=== PATIENT | female | born 1960 | race Caucasian/White ===

== ENCOUNTER 2017-04-26 15:30 | Outpatient (RCR) | payer OTHER, SELFPAY ==
--- NOTE | 2017-04-24 16:04 | HP.PTEVAL_ITS ---
Patient's Visit Information ЕЛЕНА YUAN is a 56 year old F referred to Physical Therapy by Brayan ALMEIDA with a diagnosis of vertigo.. Date of Evaluation: 04/24/17 Physical Therapist: Mina Sanders DPT, OC - Visit Plan Frequency: 1x/Week Duration: 4 Weeks Plan: weekly as needed. 2-4 weeks - Subjective Subjective: Started spinning upon arising this mornign rolling on L side lasting seconds. Went away but things were not right in the shower. This is just nancy last time she had BPPV. She tried the exercises described as BD ex but spinning was terrible. Has felt off all day today. Wroks at home but needed to stop. Spun getting out of the truck on the way here. Putting on shoes was problematic. Yesterday was a normal day. Not sure why it started. No other unusual symptoms present, arms feel good. Feels unsettled. - Objective Walks I, transfers I, has frowny face and does nto look happy today. - R hallpike. + L hallpike with up torsional nystagmus for 40 seconds. Treated with L Christie. - Goals Goal 1:: abolish dizzyness. Goal Time Frame: 2-4 Weeks - Rehabilitation Potential Physical Therapy Diagnosis: BPPV L Rehabilitation Potential: Good - Anticipated Interventions Patient/Client Instruction: Educate patient on: Condition For the Purpose of:: To decrease pain Comment: positional treatments as needed. Other: dizzyness. abolished. Thank you for the opportunity to evaluate your patient. For Medicare and Medicare HMO plans, please review the plan of care and approve it. It will need to be FAXED BACK to us at [phone] for Medicare purposes. Please let me know if there are questions or concerns regarding this plan of care. Physician Signature: Date:
--- NOTE | 2017-05-06 13:02 | HP.PTDCSUM ---
HP - PT D/C Summary It has been my pleasure to treat ЕЛЕНА YUAN under orders from DR.RMASON Eddie for the diagnosis of vertigo. for a total of 2 visit(s). Discharge Date: 05/06/17 Please see the following information for a summary of their discharge status. - Subjective Subjective: No problems with dizzyness anymore as related on phone. - Objective Objective/Function: - R HD. + L HD for slight increased funny feeling but no nystagmus. - Goals Goal 1:: abolish dizzyness. Goal Progress: Progressing - Plan Plan: D/C per patient request. - D/C Information Discharge Comments: Pt cancelled last visit stating she was doing well. If there are questions or concerns regarding this patient's physical therapy, please feel free to call me at [phone]. Thank you for the referral of this patient. Sincerely, Mina Sanders, DPT, OC
== END 2017-04-26 19:00 | disposition home or self-care (01) ==
LOC: PT 15:30
PROVIDERS: Visit Provider Family Medicine
DX: R42 Dizziness and giddiness (principal)
CPT/HCPCS: 97162; 97530

== ENCOUNTER → 2017-08-01 08:34 | Outpatient (CLI) | payer OTHER, SELFPAY ==
--- NOTE | 2017-08-01 08:35 | BI_ITS ---
MAMMOGRAPHY - BILATERAL SCREENING REASON FOR EXAM: Female, 57 years old. Routine annual screening examination. PERTINENT HISTORY: Non-contributory. TECHNIQUE: Digital bilateral breast elena (3D mammographic acquisition) in the CC and MLO projections. 2-D mediolateral oblique (MLO) and craniocaudad (CC) views of both breasts were obtained. CAD: Full Field Digital Mammography with Computer Added Detection was performed. COMPARISON: Comparison is made with prior study dated July 28, 2015 and July 26, 2014. FINDINGS: Breast Composition: The breasts are heterogeneously dense, which may obscure small masses. There are no dominant masses or suspicious calcifications. No other significant abnormalities are identified. There has been no significant change since the prior study. BI/SCREENING MAMM (CAD), BILAT IMPRESSION: Stable bilateral screening mammogram. Yearly follow-up mammogram recommended. (A) ASSESSMENT CATEGORY: BIRADS Category 1: Negative. A letter regarding these results will be sent to the patient by the facility within 30 days. Approximately 10% of breast cancers are not detected by mammography. A normal mammogram should not delay biopsy of a clinically suspicious abnormality. [id number] Electronically Signed: Carmine Puente MD at 9:49 EDT Tel [phone], Service support ,
== END ==
PROVIDERS: Visit Provider Obstetrics & Gynecology
DX: Z12.31 Encounter for screening mammogram for malignant neoplasm of breast (principal)
CPT/HCPCS: 77063; 77067

== ENCOUNTER → 2017-08-08 07:08 | Outpatient (CLI) | payer OTHER, SELFPAY ==
[2017-08-08 10:46] LABS: AST(SGOT) 18 U/L (15-37); Alanine Aminotransfer ALT/SGPT 25 U/L (13-56); Albumin, Serum 4.2 g/dL (3.2-5.0); Alkaline Phosphatase 40 U/L (45-117); Bilirubin, Direct 0.14 mg/dL (0.00-0.30); Cholesterol 144 mg/dL (200); Globulin 3.9 g/dL (2.2-4.2); High Density Lipoprotein 62 mg/dL; Protein, Total 8.1 g/dL (6.4-8.2); Thyroid Stim Hormone (TSH) 2.99 uIU/mL (0.358-3.74); Triglycerides 78 mg/dL; Very Low Density Lipoprotein 16 mg/dL (5-40)
== END ==
PROVIDERS: Visit Provider Family Medicine
DX: E78.5 Hyperlipidemia, unspecified (principal); E03.9 Hypothyroidism, unspecified
CPT/HCPCS: 36415; 80061; 80076; 84443

== ENCOUNTER → 2018-03-10 07:01 | Outpatient (CLI) | payer OTHER, SELFPAY ==
[2018-03-10 10:38] LABS: Color, Urine Yellow (Yellow); Glucose, Dipstick Normal (Normal); Ketone-Dipstick Negative (Negative); Leukocyte Esterase-Dipstick 100 /ul (Negative); Nitrite-Dipstick Negative (Negative); Occult Blood-Urine Negative /ul (Negative); Protein-Dipstick Negative (Negative); Urine Bilirubin Dipstick Negative (Negative); Urine Clarity Clear (Clear); Urine Urobilinogen Normal (Normal)
[2018-03-10 10:44] LABS: Absolute Neutrophil Count 2.3 X10^3/uL (2.0-7.7); Basophil# 0.05 X10^3/uL; Basophil% 0.9 % (0-1); Eosinophil# 0.17 X10^3/uL; Hematocrit 37.9 % (37-47); Hemoglobin 12.2 g/dl (12.0-15.0); Lymphocyte % 42.6 % (19-41); Mean Corp Hgb Conc 32.2 g/gl (32-36); Mean Corpuscular Volume 96.2 fL (81-99); Mean Platelet Vol. 10.4 fl (6.2-12.0); Monocyte# 0.74 X10^3/uL; Monocyte% 13.1 % (0-10); Neutrophil # 2.26 X10^3/uL (2.7-7.7); Neutrophil % 40.2 % (47-70); Platelet Count 240 K/mm3 (150-450); RBC Distribution Width CV 12.6 % (11.6-14.6); RBC Distribution Width SD 44.4 fl (35.1-43.9); Red Blood Count 3.94 M/mm3 (4.2-5.4); White Blood Count 5.6 K/mm3 (4.4-11.0)
[2018-03-10 10:45] LABS: POSITIVE COUNT NO; POSITIVE DIFFERENTIAL NO; POSITIVE MORPHOLOGY NO
[2018-03-10 10:49] LABS: ALB/GLOB Ratio 1.2 RATIO (0.9-2.4); AST(SGOT) 18 U/L (15-37); Alanine Aminotransfer ALT/SGPT 24 U/L (13-56); Albumin, Serum 3.7 g/dL (3.2-5.0); Alkaline Phosphatase 41 U/L (45-117); Anion Gap 9 (5-15); BUN 16 mg/dL (7-18); BUN/Creat Ratio 17.3 RATIO (10-20); Calcium,Total 8.7 mg/dL (8.5-10.1); Chloride 106 mmol/L (98-107); Cholesterol 148 mg/dL (200); Creatinine, Serum 0.92 mg/dL (0.55-1.02); EST Glomerular Filtration Rate 67 mL/min (>60); Est Glom Filt Rate - Afr Amer 81 mL/min (>60); Globulin 3.2 g/dL (2.2-4.2); Glucose 85 mg/dL (74-106); High Density Lipoprotein 57 mg/dL; Potassium 4.1 mmol/L (3.5-5.1); Protein, Total 6.9 g/dL (6.4-8.2); Sodium Level 145 mmol/L (136-145); Triglycerides 68 mg/dL; Very Low Density Lipoprotein 14 mg/dL (5-40)
== END ==
PROVIDERS: Referring Provider Family Medicine; Visit Provider Family Medicine
DX: Z00.00 Encounter for general adult medical examination without abnormal findings (principal); E78.5 Hyperlipidemia, unspecified
CPT/HCPCS: 36415; 80053; 80061; 81002; 85025

== ENCOUNTER → 2018-09-15 | Outpatient (CLI) | payer OTHER, SELFPAY ==
[2018-09-15 10:29] LABS: AST(SGOT) 22 U/L (15-37); Alanine Aminotransfer ALT/SGPT 23 U/L (13-56); Albumin, Serum 3.6 g/dL (3.2-5.0); Alkaline Phosphatase 48 U/L (45-117); Bilirubin, Direct 0.11 mg/dL (0.00-0.30); Cholesterol 161 mg/dL (200); Globulin 3.4 g/dL (2.2-4.2); High Density Lipoprotein 52 mg/dL; Thyroid Stim Hormone (TSH) 0.31 uIU/mL (0.358-3.74); Triglycerides 189 mg/dL; Very Low Density Lipoprotein 38 mg/dL (5-40)
== END | disposition home or self-care (01) ==
PROVIDERS: Referring Provider Family Medicine; Visit Provider Family Medicine
DX: E03.9 Hypothyroidism, unspecified (principal); E78.5 Hyperlipidemia, unspecified
CPT/HCPCS: 36415; 80061; 80076; 84443

== ENCOUNTER → 2018-12-26 07:30 | Outpatient (CLI) | payer OTHER, SELFPAY ==
[2018-12-26 10:28] LABS: Thyroid Stim Hormone (TSH) 1.91 uIU/mL (0.358-3.74)
== END ==
PROVIDERS: Referring Provider Family Medicine; Visit Provider Family Medicine
DX: E03.9 Hypothyroidism, unspecified (principal)
CPT/HCPCS: 36415; 84443

== ENCOUNTER → 2019-03-09 07:58 | Outpatient (CLI) | payer OTHER, SELFPAY ==
[2019-03-09 10:10] LABS: Absolute Lymphocyte Count 1.93 X10^3/uL (0.83-4.51); Absolute Neutrophil Count 2.8 X10^3/uL (2.0-7.7); Basophil# 0.07 X10^3/uL; Basophil% 1.3 % (0-1); Eosinophil# 0.15 X10^3/uL; Eosinophils% 2.7 % (0-5); Hematocrit 39.8 % (37-47); Hemoglobin 12.9 g/dL (12.0-15.0); Lymphocyte # 1.93 X10^3/ul (4.0); Lymphocyte % 34.9 % (19-41); Mean Corp Hgb Conc 32.4 g/dL (32-36); Mean Corpuscular Hgb 31.2 pg (27.0-32.0); Mean Corpuscular Volume 96.4 fL (81-99); Mean Platelet Vol. 10.4 fl (6.2-12.0); Monocyte# 0.61 X10^3/uL; NRBC Flagged by Analyzer 0 % (0-5); Neutrophil # 2.75 X10^3/uL (2.7-7.7); Neutrophil % 49.7 % (47-70); Platelet Count 263 K/mm3 (150-450); RBC Distribution Width CV 12.4 % (11.6-14.6); RBC Distribution Width SD 43.7 fl (35.1-43.9); Red Blood Count 4.13 M/mm3 (4.2-5.4); White Blood Count 5.5 K/mm3 (4.4-11.0)
[2019-03-09 10:12] LABS: Color, Urine Yellow (Yellow); Glucose, Dipstick Normal (Normal); Ketone-Dipstick Negative (Negative); Leukocyte Esterase-Dipstick Negative /ul (Negative); Nitrite-Dipstick Negative (Negative); Occult Blood-Urine Negative /ul (Negative); Protein-Dipstick Negative (Negative); Urine Bilirubin Dipstick Negative (Negative); Urine Clarity Sl. Cloudy (Clear); Urine Urobilinogen Normal (Normal)
[2019-03-09 10:32] LABS: AST(SGOT) 23 U/L (15-37); Alanine Aminotransfer ALT/SGPT 27 U/L (13-56); Albumin, Serum 3.7 g/dL (3.2-5.0); Alkaline Phosphatase 44 U/L (45-117); Anion Gap 4 (5-15); BUN 13 mg/dL (7-18); BUN/Creat Ratio 13.1 RATIO (10-20); Calcium,Total 8.7 mg/dL (8.5-10.1); Chloride 106 mmol/L (98-107); Cholesterol 176 mg/dL (200); Creatinine, Serum 0.99 mg/dL (0.55-1.02); EST Glomerular Filtration Rate 62 mL/min (>60); Est Glom Filt Rate - Afr Amer 74 mL/min (>60); Globulin 3.6 g/dL (2.2-4.2); Glucose 88 mg/dL (74-106); High Density Lipoprotein 69 mg/dL; Protein, Total 7.3 g/dL (6.4-8.2); Sodium Level 142 mmol/L (136-145); Thyroid Stim Hormone (TSH) 1.53 uIU/mL (0.358-3.74); Triglycerides 66 mg/dL; Very Low Density Lipoprotein 13 mg/dL (5-40)
== END ==
PROVIDERS: PCP Family Medicine; Referring Provider Family Medicine; Visit Provider Family Medicine
DX: Z00.00 Encounter for general adult medical examination without abnormal findings (principal); E78.5 Hyperlipidemia, unspecified; E03.9 Hypothyroidism, unspecified
CPT/HCPCS: 36415; 80053; 80061; 81002; 84443; 85025

== ENCOUNTER → 2019-09-17 07:05 | Outpatient (CLI) | payer OTHER, SELFPAY ==
[2019-09-17 10:53] LABS: AST(SGOT) 25 U/L (15-37); Alanine Aminotransfer ALT/SGPT 27 U/L (13-56); Albumin, Serum 3.6 g/dL (3.2-5.0); Alkaline Phosphatase 48 U/L (45-117); Bilirubin, Direct 0.09 mg/dL (0.00-0.30); Cholesterol 193 mg/dL (200); Globulin 3.5 g/dL (2.2-4.2); High Density Lipoprotein 68 mg/dL; Protein, Total 7.1 g/dL (6.4-8.2); Triglycerides 123 mg/dL; Very Low Density Lipoprotein 25 mg/dL (5-40)
== END ==
PROVIDERS: PCP Family Medicine; Referring Provider Family Medicine; Visit Provider Family Medicine
DX: E78.5 Hyperlipidemia, unspecified (principal); E03.9 Hypothyroidism, unspecified
CPT/HCPCS: 36415; 80061; 80076; 84443

== ENCOUNTER → 2020-03-08 07:04 | Outpatient (CLI) | payer OTHER, SELFPAY ==
[2020-03-08 09:46] LABS: Absolute Lymphocyte Count 1.92 X10^3/uL (0.83-4.51); Absolute Neutrophil Count 2.8 X10^3/uL (2.0-7.7); Basophil# 0.07 X10^3/uL; Basophil% 1.3 % (0-1); Eosinophil# 0.12 X10^3/uL; Eosinophils% 2.2 % (0-5); Hematocrit 38.3 % (37-47); Hemoglobin 12.4 g/dL (12.0-15.0); Lymphocyte # 1.92 X10^3/ul (4.0); Lymphocyte % 34.7 % (19-41); Mean Corp Hgb Conc 32.4 g/dL (32-36); Mean Corpuscular Hgb 31.3 pg (27.0-32.0); Mean Corpuscular Volume 96.7 fL (81-99); Mean Platelet Vol. 10.1 fl (6.2-12.0); Monocyte# 0.66 X10^3/uL; Monocyte% 11.9 % (0-10); NRBC Flagged by Analyzer 0 % (0-5); Neutrophil # 2.75 X10^3/uL (2.7-7.7); Neutrophil % 49.7 % (47-70); Platelet Count 290 K/mm3 (150-450); RBC Distribution Width CV 12.1 % (11.6-14.6); RBC Distribution Width SD 43.5 fl (35.1-43.9); Red Blood Count 3.96 M/mm3 (4.2-5.4); White Blood Count 5.5 K/mm3 (4.4-11.0)
[2020-03-08 10:12] LABS: AST(SGOT) 23 U/L (15-37); Alanine Aminotransfer ALT/SGPT 30 U/L (13-56); Albumin, Serum 3.7 g/dL (3.2-5.0); Alkaline Phosphatase 51 U/L (45-117); Anion Gap 6 (5-15); BUN 10 mg/dL (7-18); BUN/Creat Ratio 10.8 RATIO (10-20); Calcium,Total 8.6 mg/dL (8.5-10.1); Chloride 103 mmol/L (98-107); Cholesterol 200 mg/dL (200); Creatinine, Serum 0.93 mg/dL (0.55-1.02); EST Glomerular Filtration Rate 66 mL/min (>60); Est Glom Filt Rate - Afr Amer 80 mL/min (>60); Globulin 3.7 g/dL (2.2-4.2); Glucose 94 mg/dL (74-106); High Density Lipoprotein 65 mg/dL; Potassium 3.8 mmol/L (3.5-5.1); Protein, Total 7.4 g/dL (6.4-8.2); Sodium Level 139 mmol/L (136-145); Thyroid Stim Hormone (TSH) 3.25 uIU/mL (0.358-3.74); Triglycerides 185 mg/dL; Very Low Density Lipoprotein 37 mg/dL (5-40)
== END ==
PROVIDERS: PCP Family Medicine; Referring Provider Family Medicine; Visit Provider Family Medicine
DX: Z00.00 Encounter for general adult medical examination without abnormal findings (principal); E78.5 Hyperlipidemia, unspecified; Z13.6 Encounter for screening for cardiovascular disorders; E03.9 Hypothyroidism, unspecified
CPT/HCPCS: 36415; 80053; 80061; 84443; 85025

== ENCOUNTER → 2020-09-08 07:01 | Outpatient (CLI) | payer OTHER, SELFPAY ==
[2020-09-08 10:38] LABS: AST(SGOT) 23 U/L (15-37); Alanine Aminotransfer ALT/SGPT 25 U/L (13-56); Albumin, Serum 3.8 g/dL (3.2-5.0); Alkaline Phosphatase 53 U/L (45-117); Bilirubin, Direct 0.12 mg/dL (0.00-0.30); Cholesterol 193 mg/dL (200); Globulin 3.3 g/dL (2.2-4.2); High Density Lipoprotein 62 mg/dL; Protein, Total 7.1 g/dL (6.4-8.2); Thyroid Stim Hormone (TSH) 0.89 uIU/mL (0.358-3.74); Triglycerides 151 mg/dL; Very Low Density Lipoprotein 30 mg/dL (5-40)
== END ==
PROVIDERS: PCP Family Medicine; Referring Provider Family Medicine; Visit Provider Family Medicine
DX: E03.9 Hypothyroidism, unspecified (principal); E78.5 Hyperlipidemia, unspecified
CPT/HCPCS: 36415; 80061; 80076; 84443

== ENCOUNTER 2021-03-27 07:04 | Outpatient (CLI) | payer OTHER, SELFPAY ==
[2021-03-27 10:00] LABS: Absolute Lymphocyte Count 2.11 X10^3/uL (0.83-4.51); Absolute Neutrophil Count 3.2 X10^3/uL (2.0-7.7); Basophil# 0.08 X10^3/uL; Basophil% 1.3 % (0-1); Eosinophil# 0.13 X10^3/uL; Eosinophils% 2.1 % (0-5); Hematocrit 37.6 % (37-47); Hemoglobin 12.3 g/dL (12.0-15.0); Lymphocyte # 2.11 X10^3/ul (0.83-4.51); Lymphocyte % 33.5 % (19-41); Mean Corp Hgb Conc 32.7 g/dL (32-36); Mean Corpuscular Hgb 31.5 pg (27.0-32.0); Mean Corpuscular Volume 96.2 fL (81-99); Mean Platelet Vol. 10.5 fl (6.2-12.0); Monocyte# 0.74 X10^3/uL; Monocyte% 11.8 % (0-10); NRBC Flagged by Analyzer 0 % (0-5); Neutrophil # 3.22 X10^3/uL (2.7-7.7); Neutrophil % 51.1 % (47-70); Platelet Count 297 K/mm3 (150-450); RBC Distribution Width CV 12.3 % (11.6-14.6); RBC Distribution Width SD 43.2 fl (35.1-43.9); Red Blood Count 3.91 M/mm3 (4.2-5.4); White Blood Count 6.3 K/mm3 (4.4-11.0)
[2021-03-27 10:36] LABS: ALB/GLOB Ratio 0.9 RATIO (0.9-2.4); AST(SGOT) 23 U/L (15-37); Alanine Aminotransfer ALT/SGPT 28 U/L (13-56); Albumin, Serum 3.7 g/dL (3.2-5.0); Alkaline Phosphatase 55 U/L (45-117); Anion Gap 7 (5-15); BUN 17 mg/dL (7-18); BUN/Creat Ratio 17.8 RATIO (10-20); Calcium,Total 9.1 mg/dL (8.5-10.1); Chloride 104 mmol/L (98-107); Cholesterol 183 mg/dL (200); Creatinine, Serum 0.95 mg/dL (0.55-1.02); EST Glomerular Filtration Rate 64 mL/min (>60); Est Glom Filt Rate - Afr Amer 77 mL/min (>60); Globulin 3.9 g/dL (2.2-4.2); Glucose 97 mg/dL (74-106); High Density Lipoprotein 58 mg/dL; Potassium 3.9 mmol/L (3.5-5.1); Protein, Total 7.6 g/dL (6.4-8.2); Sodium Level 141 mmol/L (136-145); Thyroid Stim Hormone (TSH) 1.68 uIU/mL (0.358-3.74); Triglycerides 204 mg/dL; Very Low Density Lipoprotein 41 mg/dL (5-40)
== END 2021-03-27 23:59 | disposition short-term general hospital (02) ==
PROVIDERS: PCP Family Medicine; Referring Provider Family Medicine; Visit Provider Family Medicine
DX: Z00.00 Encounter for general adult medical examination without abnormal findings (principal); Z13.6 Encounter for screening for cardiovascular disorders; E78.5 Hyperlipidemia, unspecified; E03.9 Hypothyroidism, unspecified
CPT/HCPCS: 36415; 80053; 80061; 84443; 85025

== ENCOUNTER → 2021-09-04 | Outpatient (CLI) | payer OTHER, SELFPAY ==
--- NOTE | 2021-09-04 17:47 | MRI_ITS ---
EXAM: MR HEAD WITHOUT AND WITH INTRAVENOUS CONTRAST CLINICAL INDICATION: RT MID FACIAL HYPERSTHESIS,ATTN IAC TECHNIQUE: Multiplanar and multisequence MR images of the brain were obtained without and with intravenous contrast. This report was created using [employer] report [employer] technology. CONTRAST: IV 12ml Clariscan COMPARISON: CT head 01/30/2017 FINDINGS: BRAIN AND EXTRA-AXIAL SPACES: Unremarkable. No intra- or extra-axial hemorrhage. No evidence of acute infarct. No intracranial mass or mass effect. There is preservation of the talley/white matter interface. Posterior fossa structures are unremarkable. Ventricles are appropriate for age. No hydrocephalus. Basal cisterns are patent. SELLA: Empty sella sign. AUDITORY SYSTEM: Unremarkable. The internal auditory canals are patent. BONES/JOINTS: Unremarkable. No discrete lytic or blastic abnormalities. SINUSES: Unremarkable as visualized. Clear. MASTOID AIR CELLS: Unremarkable as visualized. Clear. ORBITS: Unremarkable as visualized. Both globes, extraocular muscles, optic nerves and retrobulbar fat appear unremarkable. VASCULATURE: Unremarkable as visualized. Normal flow voids in the major intracranial circulation. MRI/Brain W/WO Contrast IMPRESSION: No acute findings in the head/brain. Electronically Signed: Tyrone Grande MD at 19:24 EDT ,
== END | disposition home or self-care (01) ==
PROVIDERS: PCP Family Medicine; Referring Provider Otolaryngology; Visit Provider Otolaryngology
DX: R20.1 Hypoesthesia of skin (principal)
CPT/HCPCS: 70553; A9575

== ENCOUNTER → 2022-06-05 | Outpatient (CLI) | payer OTHER, SELFPAY ==
--- NOTE | 2022-06-05 17:03 | MRI_ITS ---
INDICATION: Right trigeminal neuralgia EXAMINATION: MRA - MRA Head W/O Contrast TECHNIQUE: Routine [place] of [place]/brain 3D time of flight MR angiogram protocol was performed without gadolinium. 3D reconstructions were reviewed. IV Contrast Dosage and Agent: None. COMPARISON: 09/04/2021 MRI FINDINGS: --Anterior Circulation: ICAs: No significant stenosis at the intracranial/visualized segments. ACAs: No significant stenosis at the visualized segments. ACOM: Present. MCAs: No significant stenosis at the visualized segments. --Posterior Circulation: PCOMs: Present. centrex radio operator: No significant stenosis at the visualized segments. BASILAR ARTERY: No significant stenosis. VERTEBRAL ARTERIES: No significant stenosis at the intradural/visualized segments. No evidence of intracranial aneurysm or vascular malformation. MRI/MRA Head ONLY without Contrast IMPRESSION: Unremarkable MRA head. Electronically Signed: Mauro Menard MD at 18:35 EDT ,
== END | disposition home or self-care (01) ==
LOC: MRI 17:01
PROVIDERS: PCP Family Medicine; Referring Provider Psychiatry & Neurology Neurology; Visit Provider Psychiatry & Neurology Neurology
DX: G50.0 Trigeminal neuralgia (principal); H81.09 Meniere's disease, unspecified ear
CPT/HCPCS: 70544

== ENCOUNTER → 2022-06-15 | Outpatient (CLI) | payer OTHER, SELFPAY ==
[2022-06-15 10:48] LABS: Vitamin B12 1358 pg/mL (211-911)
[2022-06-15 10:50] LABS: Thyroid Stim Hormone (TSH) 2.21 uIU/mL (0.358-3.74)
[2022-06-19 11:13] LABS: Vitamin B1, Thiamine 203.4 nmol/L (66.5-200.0)
== END | disposition home or self-care (01) ==
LOC: MTLAB 09:21
PROVIDERS: PCP Family Medicine; Referring Provider Psychiatry & Neurology Neurology; Visit Provider Psychiatry & Neurology Neurology
DX: G50.0 Trigeminal neuralgia (principal)
CPT/HCPCS: 36415; 82607; 82746; 84425; 84443

== ENCOUNTER → 2022-10-02 | Outpatient (CLI) | payer OTHER, SELFPAY ==
[2022-10-02 10:26] LABS: Hemoglobin 13.5 g/dL (12.0-15.0); Mean Corp Hgb Conc 35.5 g/dL (32-36); Mean Corpuscular Hgb 33.3 pg (27.0-32.0); Mean Corpuscular Volume 93.6 fL (81-99); Mean Platelet Vol. 10.2 fl (6.2-12.0); Platelet Count 388 K/mm3 (150-450); RBC Distribution Width CV 11.9 % (11.6-14.6); RBC Distribution Width SD 40.5 fl (35.1-43.9); Red Blood Count 4.06 M/mm3 (4.2-5.4); White Blood Count 6.5 K/mm3 (4.4-11.0)
[2022-10-02 10:57] LABS: ALB/GLOB Ratio 1.1 RATIO (0.9-2.4); AST(SGOT) 19 U/L (15-37); Alanine Aminotransfer ALT/SGPT 24 U/L (13-56); Alkaline Phosphatase 51 U/L (45-117); Anion Gap 8 (5-15); BUN 16 mg/dL (7-18); BUN/Creat Ratio 17.2 RATIO (10-20); Calcium,Total 9.5 mg/dL (8.5-10.1); Chloride 93 mmol/L (98-107); Creatinine, Serum 0.93 mg/dL (0.55-1.02); EST Glomerular Filtration Rate 65 mL/min (>60); Est Glom Filt Rate - Afr Amer 79 mL/min (>60); Globulin 3.5 g/dL (2.2-4.2); Glucose 94 mg/dL (74-106); Protein, Total 7.5 g/dL (6.4-8.2); Sodium Level 129 mmol/L (136-145)
[2022-10-05 00:07] LABS: Trileptal-Oxcarbazepine 4 ug/mL (10-35)
== END | disposition home or self-care (01) ==
PROVIDERS: PCP Family Medicine; Referring Provider Psychiatry & Neurology Neurology; Visit Provider Psychiatry & Neurology Neurology
DX: G50.0 Trigeminal neuralgia (principal)
CPT/HCPCS: 36415; 80053; 82542; 85027

== ENCOUNTER → 2023-06-20 | Outpatient (CLI) | payer OTHER, SELFPAY ==
--- NOTE | 2023-06-20 11:54 | EKG12_ITS ---
Test Reason : PRE-OP Blood Pressure : / mmHG Vent. Rate : 052 BPM Atrial Rate : 052 BPM P-R Int : 134 ms QRS Dur : 094 ms QT Int : 436 ms P-R-T Axes : 017 -22 011 degrees QTc Int : 405 ms Sinus bradycardia Otherwise normal ECG Confirmed by AISLINN CORTEZ, ANGELINA ([id number]), design editor DORETHA DE LEÓN ([id number]) on 06/21/2023 9:16:26 AM Referred By: Dayne Martin Confirmed By:ANGELINA TAO MD
[2023-06-20 13:07] LABS: Absolute Lymphocyte Count 2.12 X10^3/uL (0.83-4.51); Absolute Neutrophil Count 3.3 X10^3/uL (2.0-7.7); Basophil# 0.07 X10^3/uL; Basophil% 1.1 % (0-1); Eosinophil# 0.09 X10^3/uL; Eosinophils% 1.4 % (0-5); Hematocrit 36.8 % (37-47); Hemoglobin 12.5 g/dL (12.0-15.0); Lymphocyte # 2.12 X10^3/ul (0.83-4.51); Lymphocyte % 33.4 % (19-41); Mean Corpuscular Volume 94.1 fL (81-99); Mean Platelet Vol. 9.3 fl (6.2-12.0); Monocyte# 0.73 X10^3/uL; Monocyte% 11.5 % (0-10); NRBC Flagged by Analyzer 0 % (0-5); Neutrophil # 3.31 X10^3/uL (2.7-7.7); Neutrophil % 52.3 % (47-70); Platelet Count 336 K/mm3 (150-450); RBC Distribution Width CV 11.9 % (11.6-14.6); RBC Distribution Width SD 41.7 fl (35.1-43.9); Red Blood Count 3.91 M/mm3 (4.2-5.4); White Blood Count 6.3 K/mm3 (4.4-11.0)
[2023-06-20 13:32] LABS: Anion Gap 6 (5-15); BUN 14 mg/dL (7-18); Calcium,Total 9.4 mg/dL (8.5-10.1); Chloride 100 mmol/L (98-107); Creatinine, Serum 0.74 mg/dL (0.55-1.02); EST Glomerular Filtration Rate 85 mL/min (>60); Est Glom Filt Rate - Afr Amer 103 mL/min (>60); Glucose 97 mg/dL (74-106); Potassium 4.1 mmol/L (3.5-5.1); Sodium Level 134 mmol/L (136-145)
== END | disposition home or self-care (01) ==
PROVIDERS: PCP Family Medicine; Referring Provider Student in an Organized Health Care Education/Training Program; Visit Provider Student in an Organized Health Care Education/Training Program
DX: Z01.818 Encounter for other preprocedural examination (principal); Z01.810 Encounter for preprocedural cardiovascular examination
CPT/HCPCS: 36415; 80048; 85025; 93005

== ENCOUNTER → 2024-06-04 | Outpatient (CLI) | payer OTHER, SELFPAY ==
[2024-06-04 11:42] LABS: Hemoglobin A1c 5.9 % (<=5.6)
== END | disposition home or self-care (01) ==
LOC: MTLAB 08:46
PROVIDERS: PCP Family Medicine; Referring Provider Psychiatry & Neurology Neurology; Visit Provider Psychiatry & Neurology Neurology
DX: R73.9 Hyperglycemia, unspecified (principal)
CPT/HCPCS: 36415; 83036